=== PATIENT | female | born 1990 | race Two or more races ===

== ENCOUNTER → 2025-01-09 | Emergency (ER) | payer OTHER ==
[~2025-01-09] VITALS: Ht 160 cm; Wt 86.2 kg
[~2025-01-09] MED LIST: BENZONATATE 200 MG CAPSULE PO ONE; BENZONATATE200 M1 PO; CEFTRIAXONE SODIUM 1,000 MG VIAL IV ONE; CEFTRIAXONE SODIUM 1,000 MG VIAL ONE; IPRATROPIUM BROMIDE 0.5 MG/2.5 ML AMPUL.NEB IH ONE; LEVALBUTER0.63 MG/3 IH; LEVALBUTEROL HCL 1.25 MG/3 ML SOLUTION IH ONE; METHYLPREDNISOLONE SOD SUCC 125 MG VIAL IV ONE; METHYLPREDNISOLONE SOD SUCC 125 MG VIAL ONE; PEPCID AC20 MG PO; ZITHROMAX500 MG PO
[2025-01-10 01:28] LABS: BASO % 0.4 % (0.1-1.2); EOS # 0.09 (0.04-0.54); EOS % 0.9 % (0.7-7.0); LYMPH # 3.43 (1.18-3.74); LYMPH % 32.9 % (19.3-53.1); MEAN PLATELET VOLUME 10.40 fl (9.4-12.4); MONO # 0.62 (0.24-0.82); MONO % 5.9 % (4.7-12.5); NEUT # 6.24 (1.56-6.13); NEUT % 59.7 % (34.0-71.1); RED CELL DISTRIBUTION WIDTH 18.4 % (11.6-14.4)
[2025-01-10 03:34] LABS: COVID-19 AG NEGATIVE (NEGATIVE)
== END | disposition home or self-care (01) ==
LOC: ER 22:17
PROVIDERS: General Practice
DX: J00 Acute nasopharyngitis [common cold] (principal); Z20.822 Contact with and (suspected) exposure to COVID-19